=== PATIENT | male | born 1955 | race Caucasian/White ===

== ENCOUNTER → 2017-07-24 | Outpatient (CLI) | payer BC ==
[~2017-07-24] MED LIST: ONDA4TAB46 PO; RANI150T3 PO
--- NOTE | 2017-07-24 14:38 | DIAGNOSTIC IMAGING REPORT ---
RENAL ULTRASOUND HISTORY: FREQUENCY OF MICTURITION COMPARISON: Abdomen and pelvis CT 04/25/2016. 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 Left kidney: 11.8 cm. Multiple peripelvic cysts are again noted. There is mild fullness within the renal pelvis without niru hydronephrosis. There is a 4.1 cm cyst within the lower pole. This has slightly increased in size. Normal corticomedullary differentiation and cortical thickness. Bladder: No bladder wall thickening. The left ureteral jet was identified. Soft tissue protruding into the bladder base is likely due to the enlarged prostate gland. This is not significantly changed. Post void residual was 47 cc. Question of a left-sided ureterocele. IMPRESSION: 1. 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 2. Mild fullness within the left renal collecting system without niru hydronephrosis. 3. Multiple left peripelvic renal cysts. 4. There is question of a left-sided ureterocele. This can be confirmed with follow-up IVP if clinically warranted. Electronically signed by: Adam Bailey M.D. 07/24/2017 2:37 PM Dictated Date/Time: 07/24/2017 2:33 PM
== END | disposition home or self-care (01) ==
LOC: C.ULTR 13:36
PROVIDERS: ATTEND Student in an Organized Health Care Education/Training Program
DX: R35.0 Frequency of micturition (principal); N28.1 Cyst of kidney, acquired; Z90.5 Acquired absence of kidney